=== PATIENT | female | born 1980 | race African-American/Black ===

== ENCOUNTER → 2020-02-10 | Outpatient (CLI) | payer BC | LOC: M.RAD 10:46 | DX: Z12.31 Encounter for screening mammogram for malignant neoplasm of breast (principal); N64.89 Other specified disorders of breast ==

== ENCOUNTER → 2021-02-22 | Outpatient (CLI) | payer BC | LOC: M.RAD 13:01 | DX: Z12.31 Encounter for screening mammogram for malignant neoplasm of breast (principal) ==